=== PATIENT | male | born 1990 | race African-American/Black ===

== ENCOUNTER 2017-02-02 13:10 | Emergency (ER) | payer SELFPAY ==
[~2017-02-02] VITALS: Ht 172.7 cm; Wt 70.4 kg
[2017-02-02 13:10] VITALS: BP 141/90
== END 2017-02-02 15:08 | disposition left against medical advice (07) ==
LOC: M ED 13:10
DX: S69.90XA Unspecified injury of unspecified wrist, hand and finger(s), initial encounter (principal); X58.XXXA Exposure to other specified factors, initial encounter; Y92.9 Unspecified place or not applicable; Y93.9 Activity, unspecified; Y99.9 Unspecified external cause status; Z53.21 Procedure and treatment not carried out due to patient leaving prior to being seen by health care provider

== ENCOUNTER 2018-07-24 12:37 | Emergency (ER) | payer BC, SELFPAY ==
[~2018-07-24] VITALS: Ht 165.1 cm; Wt 72.7 kg
[2018-07-24] MEDS ORDERED: ONDANSETRON 4 MG ORAL DISINTEGRATING TAB (Q0162 PER 1MG) PO ONE (13:15)
[2018-07-24] MEDS ORDERED: DICY10CA13 PO (13:59)
[2018-07-24] MEDS ORDERED: ONDA4TAB6 PO (13:59)
[2018-07-24 14:07] VITALS: BP 128/76
== END 2018-07-24 14:08 | disposition home or self-care (01) ==
LOC: M ED 12:37
DX: H00.014 Hordeolum externum left upper eyelid (principal); R11.10 Vomiting, unspecified; R19.7 Diarrhea, unspecified; J45.909 Unspecified asthma, uncomplicated; F17.200 Nicotine dependence, unspecified, uncomplicated
CPT/HCPCS: 99283; Q0162

== ENCOUNTER 2019-06-12 15:59 | Emergency (ER) | payer SELFPAY ==
[~2019-06-12] VITALS: Ht 162.6 cm; Wt 84.3 kg
[~2019-06-12 15:59] MED LIST: DICY10CA13 PO; ONDA4TAB6 PO
[2019-06-12] MEDS ORDERED: NAPR-837 PO (17:12)
[2019-06-12] MEDS ORDERED: PENI500T PO (17:12)
[2019-06-12] MEDS ORDERED: NAPROXEN 250 MG TAB PO ONE (17:15)
[2019-06-12] MEDS ORDERED: PENICILLIN V POTASSIUM 500 MG TAB PO ONE (17:15)
[2019-06-12 17:23] VITALS: BP 131/69
== END 2019-06-12 17:24 | disposition home or self-care (01) ==
LOC: M ED 15:59
DX: K02.9 Dental caries, unspecified (principal); K08.89 Other specified disorders of teeth and supporting structures; J45.909 Unspecified asthma, uncomplicated; F17.210 Nicotine dependence, cigarettes, uncomplicated

== ENCOUNTER 2023-06-21 06:53 | Emergency (ER) | payer SELFPAY ==
[~2023-06-21] VITALS: Ht 165.1 cm; Wt 85.1 kg
[~2023-06-21 06:53] MED LIST changes: +DICY-61 PO; -DICY10CA13 PO; +NAPR-837 PO; +NASA1SPR NARES; +PENI500T PO
[2023-06-21] MEDS ORDERED: ALBU2.5V10 INH (07:03)
[2023-06-21 08:08] LABS: RSV AMPLIFICATION NEGATIVE (NEGATIVE)
[2023-06-21] MEDS ORDERED: ONDANSETRON 4MG ORAL DISINTEGRATING TAB PO ONE (09:15)
[2023-06-21] MEDS ORDERED: BENZ200C70 PO (09:25)
[2023-06-21] MEDS ORDERED: ONDA4TAB6 PO (09:25)
[2023-06-21 09:31] VITALS: BP 112/81; TEMP 97.7; O2SAT 100
== END 2023-06-21 09:36 | disposition home or self-care (01) ==
LOC: M ED 06:53
DX: J06.9 Acute upper respiratory infection, unspecified (principal); J45.909 Unspecified asthma, uncomplicated; Z79.52 Long term (current) use of systemic steroids; Z79.83 Long term (current) use of bisphosphonates; Z79.899 Other long term (current) drug therapy